=== PATIENT | female | born 1995 | race American Indian/Alaskan Native ===

== ENCOUNTER 2016-08-25 10:58 | Emergency (ER) | payer BC ==
--- NOTE | 2016-08-25 13:30 | Emergency Department Report ---
ED ENT HPI - General Chief complaint: Earache Stated complaint: EAR INFECTION/BI LATERAL Time Seen by Provider: 08/25/16 13:27 Source: patient Mode of arrival: Ambulatory Limitations: No Limitations - History of Present Illness Initial comments: Patient reports bilateral ear pain with pressure that started one month ago, despite trying [id number] medication for swimmer's ear complaint: ear pain (bilateral) Onset/Timin -: month(s) Location: R ear, L ear Severity: mild Severity scale (0 -10): 2 Quality: constant Consistency: constant Improves with: none Worsens with: movement Context-Epistaxis: other (none) Context- Dental: other (none) Context- Ear: other (none) Associated Symptoms: denies: fever, cough, gum swelling, toothache, pain with swallowing, sore throat, tinnitus, hearing loss, discharge from ear, rhinorrhea - Related Data Home Medications Medication Instructions Recorded Confirmed Last Taken Etonogestrel/Ethinyl Estradiol 1 unit VG Q4W 05/04/14 05/04/14 04/12/14 [Nuvaring Vaginal Ring] Previous Rx's Medication Instructions Recorded Last Taken Type Cetirizine HCl [ZyrTEC] 10 mg PO DAILY #30 capsule 08/25/16 Unknown Rx Fluticasone [Flonase] 1 spray NS QDAY #1 bottle 08/25/16 Unknown Rx Allergies Allergy/AdvReac Type Severity Reaction Status Date / Time No Known Allergies Allergy Unverified 05/04/14 23:12 ED Dental HPI - General Chief complaint: Earache Stated complaint: EAR INFECTION/BI LATERAL Source: patient Mode of arrival: Ambulatory Limitations: No Limitations - Related Data Home Medications Medication Instructions Recorded Confirmed Last Taken Etonogestrel/Ethinyl Estradiol 1 unit VG Q4W 05/04/14 05/04/14 04/12/14 [Nuvaring Vaginal Ring] Previous Rx's Medication Instructions Recorded Last Taken Type Cetirizine HCl [ZyrTEC] 10 mg PO DAILY #30 capsule 08/25/16 Unknown Rx Fluticasone [Flonase] 1 spray NS QDAY #1 bottle 08/25/16 Unknown Rx Allergies Allergy/AdvReac Type Severity Reaction Status Date / Time No Known Allergies Allergy Unverified 05/04/14 23:12 ED Review of Systems ROS: Stated complaint: EAR INFECTION/BI LATERAL Other details as noted in HPI Constitutional: denies: chills, diaphoresis, fever, malaise, weakness Eyes: denies: eye pain, eye discharge, vision change ENT: ear pain (bilateral). denies: throat pain, dental pain, hearing loss, epistaxis, congestion Respiratory: denies: cough, orthopnea, shortness of breath, SOB with exertion, SOB at rest, stridor, wheezing Cardiovascular: denies: chest pain, palpitations, dyspnea on exertion, orthopnea , edema, syncope, paroxysmal nocturnal dyspnea ED Past Medical Hx - Surgical History Additional Surgical History: Hernia repair. abscess repair under general anesthesia - Social History Smoking Status: Never Smoker Substance Use Type: None - Medications Home Medications: Home Medications Medication Instructions Recorded Confirmed Last Taken Type Etonogestrel/Ethinyl Estradiol 1 unit VG Q4W 05/04/14 05/04/14 04/12/14 History [Nuvaring Vaginal Ring] Cetirizine HCl [ZyrTEC] 10 mg PO DAILY #30 capsule 08/25/16 Unknown Rx Fluticasone [Flonase] 1 spray NS QDAY #1 bottle 08/25/16 Unknown Rx ED Physical Exam - General Limitations: No Limitations General appearance: alert, in no apparent distress - Head Head exam: Present: atraumatic, normocephalic - Eye Eye exam: Present: normal appearance, PERRL, EOMI Pupils: Present: normal accommodation - ENT ENT exam: Present: normal exam, normal orophraynx, mucous membranes moist, TM's normal bilaterally, normal external ear exam, other (swelling to nasal turbinates with watery drainage in nasal passages). Absent: mucous membranes dry - Neck Neck exam: Present: normal inspection, full ROM. Absent: tenderness, meningismus, lymphadenopathy, thyromegaly - Respiratory Respiratory exam: Present: normal lung sounds bilaterally. Absent: respiratory distress, wheezes, rales, rhonchi, stridor, chest wall tenderness, accessory muscle use, decreased breath sounds, prolonged expiratory - Cardiovascular Cardiovascular Exam: Present: regular rate, normal rhythm, normal heart sounds. Absent: systolic murmur, diastolic murmur, rubs, gallop, clicks, JVD, S3, S4 - Neurological Exam Neurological exam: Present: alert, oriented X3, CN II-XII intact, normal gait, reflexes normal. Absent: motor sensory deficit ED Course Vital Signs 08/25/16 11:54 Temperature 98.1 F Pulse Rate 65 Respiratory 16 Rate Blood Pressure 140/87 O2 Sat by Pulse 100 Oximetry ED Medical Decision Making - Lab Data Vital Signs 08/25/16 11:54 Temperature 98.1 F Pulse Rate 65 Respiratory 16 Rate Blood Pressure 140/87 O2 Sat by Pulse 100 Oximetry - Medical Decision Making During the course of ED, all other systems unremarkable except for documentation in HPI. Patient was sent home with prescription for Zyrtec and Flonase, instructed to follow up with selective referrals given at discharge, she verbalize understanding - Differential Diagnosis Rhinitis, Bilateral ear pressure Critical care attestation.: If time is entered above; I have spent that time in minutes in the direct care of this critically ill patient, excluding procedure time. ED Disposition Clinical Impression: Rhinitis Qualifiers: Rhinitis type: unspecified Qualified Code(s): J31.0 - Chronic rhinitis Disposition: DISCHARGED TO HOME OR SELFCARE Is pt being admited?: No Does the pt Need Aspirin: No Condition: Stable Instructions: Allergic Rhinitis (ED) Additional Instructions: Take medication as directed. Follow-up with the selective referrals given at discharge. Drink plenty of fluids in order to maintain hydration Prescriptions: Fluticasone [Flonase] 1 spray NS QDAY #1 bottle Cetirizine HCl [ZyrTEC] 10 mg PO DAILY #30 capsule Referrals: PRIMARY CAREMD [Primary Care Provider] - 3-5 Days PHILIP OCHOA MD [Staff Physician] - 3-5 Days OLI SIMPSON MD [Staff Physician] - 3-5 Days SIGRID DURHAM MD [Staff Physician] - 3-5 Days Forms: Work/School Release Form(ED) Time of Disposition: 13:33
[2016-08-25 13:51] VITALS: BP 125/89
== END 2016-08-25 13:51 | disposition home or self-care (01) ==
LOC: ED 10:58
DX: J31.0 Chronic rhinitis (principal)
CPT/HCPCS: 99282